=== PATIENT | female | born 2000 | race Caucasian/White ===

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

== ENCOUNTER 2018-05-19 00:59 | Outpatient (CLI) | payer MEDICAID ==
[2018-05-19 01:25] LABS: APPEARANCE,URINE CLOUDY; BILIRUBIN,URINE NEGATIVE (NEGATIVE); COLOR,URINE YELLOW; GLUCOSE, URINE NEGATIVE (NEGATIVE); KETONES,URINE NEGATIVE (NEGATIVE); LEUKOCYTE ESTERASE,URINE NEGATIVE (NEGATIVE); NITRITE,URINE NEGATIVE (NEGATIVE); PROTEIN,URINE NEGATIVE (NEGATIVE); URINE SPECIFIC GRAVITY 1.016; UROBILINOGEN,URINE NEGATIVE mg/dL (<2.0)
[2018-05-19 01:48] LABS: URINE AMPHETAMINES SCREEN NEGATIVE; URINE BARBITURATES SCREEN NEGATIVE; URINE BENZODIAZEPINES SCREEN NEGATIVE; URINE COCAINE SCREEN NEGATIVE; URINE MARIJUANA (THC) SCREEN NEGATIVE; URINE METHADONE SCREEN NEGATIVE; URINE PHENCYCLIDINE SCREEN NEGATIVE
--- NOTE | 2018-05-19 03:28 | Non Stress Test Report ---
Non Stress Test Datetime Report Generated by CPN: 05/19/2018 03:28 DEMOGRAPHIC EGA NST: 39.2 INDICATION Indication for Study: Ordered by Provider MONITORING Monitor Explained: Monitor Explained; Test Explained; Patient Verbalized Understanding Time on Monitor: 05/19/2018 01:13 Time off Monitor: 05/19/2018 02:09 NST Duration: 56 NST INTERVENTIONS NST Interventions: PO Hydration Physician Notified NST: Dr. Younger BABY A: [id number] BABY A Movement : Present Contraction Frequency : irregular FHR Baseline : 130 Accelerations : 15X15 Decelerations : None Variability : Moderate 6-25bpm NST Review: Meets Criteria for Reactive NST NST Review and Verified By : Lara Parra RN NST REPORT Report Trigger: Send Report
== END 2018-05-19 02:10 | disposition home or self-care (01) ==
LOC: LC 00:59
PROVIDERS: ATTEND Obstetrics & Gynecology
PROC: 4A1HXCZ Monitoring of Products of Conception, Cardiac Rate, External Approach (ICD-10-PCS; principal; 2018-05-19)
DX: O47.1 False labor at or after 37 completed weeks of gestation (principal); Z3A.39 39 weeks gestation of pregnancy
CPT/HCPCS: 59025; 80307; 81005

== ENCOUNTER 2018-05-24 14:39 | Outpatient (CLI) | payer MEDICAID ==
[2018-05-24 15:07] LABS: APPEARANCE,URINE CLOUDY; BILIRUBIN,URINE NEGATIVE (NEGATIVE); COLOR,URINE YELLOW; GLUCOSE, URINE NEGATIVE (NEGATIVE); KETONES,URINE NEGATIVE (NEGATIVE); LEUKOCYTE ESTERASE,URINE LARGE (NEGATIVE); NITRITE,URINE NEGATIVE (NEGATIVE); PROTEIN,URINE NEGATIVE (NEGATIVE); URINE SPECIFIC GRAVITY 1.015; UROBILINOGEN,URINE NEGATIVE mg/dL (<2.0)
[2018-05-24 15:35] LABS: URINE AMPHETAMINES SCREEN NEGATIVE; URINE BARBITURATES SCREEN NEGATIVE; URINE BENZODIAZEPINES SCREEN NEGATIVE; URINE COCAINE SCREEN NEGATIVE; URINE MARIJUANA (THC) SCREEN NEGATIVE; URINE METHADONE SCREEN NEGATIVE; URINE PHENCYCLIDINE SCREEN NEGATIVE
--- NOTE | 2018-05-24 15:38 | Non Stress Test Report ---
Non Stress Test Datetime Report Generated by CPN: 05/24/2018 15:38 DEMOGRAPHIC EGA NST: 40.0 INDICATION Indication for Study: Ordered by Provider MONITORING Monitor Explained: Monitor Explained; Test Explained; Patient Verbalized Understanding Time on Monitor: 05/24/2018 14:52 Time off Monitor: 05/24/2018 15:29 NST Duration: 37 NST INTERVENTIONS NST Interventions: PO Hydration; Reposition Patient Physician Notified NST: Neftaly Mina, CNM BABY A: [id number] BABY A Movement : Present Contraction Frequency : NONE FHR Baseline : 125 Accelerations : 15X15 Decelerations : None Variability : Moderate 6-25bpm NST Review: Meets Criteria for Reactive NST NST Review and Verified By : Karen Rufino RNC NST Results: Reactive NST REPORT Report Trigger: Send Report
[2018-05-24 18:05] LABS: FETAL RBC COUNT 0
[2018-05-24 18:07] LABS: KB INTERPRETATION NEGATIVE (NEGATIVE)
== END 2018-05-24 15:43 | disposition home or self-care (01) ==
LOC: LC 14:39
PROVIDERS: ATTEND Obstetrics & Gynecology
PROC: 4A1HXCZ Monitoring of Products of Conception, Cardiac Rate, External Approach (ICD-10-PCS; principal; 2018-05-24)
DX: O47.1 False labor at or after 37 completed weeks of gestation (principal); O48.0 Post-term pregnancy; Z3A.40 40 weeks gestation of pregnancy
CPT/HCPCS: 36415; 59025; 80307; 81005; 84112; 85460

== ENCOUNTER 2018-05-26 02:50 | Inpatient (IN) | payer MEDICAID ==
[2018-05-26 03:22] LABS: APPEARANCE,URINE SLIGHTLY-CLOUDY; BILIRUBIN,URINE NEGATIVE (NEGATIVE); COLOR,URINE YELLOW; GLUCOSE, URINE NEGATIVE (NEGATIVE); KETONES,URINE NEGATIVE (NEGATIVE); LEUKOCYTE ESTERASE,URINE MODERATE (NEGATIVE); NITRITE,URINE NEGATIVE (NEGATIVE); PROTEIN,URINE NEGATIVE (NEGATIVE); URINE SPECIFIC GRAVITY 1.019; UROBILINOGEN,URINE NEGATIVE mg/dL (<2.0)
[2018-05-26 03:37] LABS: URINE AMPHETAMINES SCREEN NEGATIVE; URINE BARBITURATES SCREEN NEGATIVE; URINE BENZODIAZEPINES SCREEN NEGATIVE; URINE COCAINE SCREEN NEGATIVE; URINE MARIJUANA (THC) SCREEN NEGATIVE; URINE METHADONE SCREEN NEGATIVE; URINE PHENCYCLIDINE SCREEN NEGATIVE
[2018-05-26] MEDS ORDERED: RINGERS SOLUTION,LACTATED 1,000 ML IV ONE (04:20)
[2018-05-26] MEDS ORDERED: RINGERS SOLUTION,LACTATED 1,000 ML IV PRN (04:20)
[2018-05-26] MEDS ORDERED: CITRIC ACID/SODIUM CITRATE ORAL SOLN 15 ML UDCUP ONE (04:24)
[2018-05-26] MEDS ORDERED: CEFAZOLIN 2 GM/D5W RTU 2 GM/50 ML RTUPB IV ONE (04:24)
[2018-05-26 04:41] LABS: HEMATOCRIT 36.4 % (36.0-47.0); HEMOGLOBIN 12.4 g/dL (12.0-15.5); MEAN CORPUSCULAR HEMOGLOBIN 29.6 pg (27.0-33.4); MEAN CORPUSCULAR VOLUME 87 fl (80-97); PLATELET COUNT 265 10^3/uL (150-450); RED BLOOD COUNT 4.18 10^6/uL (3.72-5.28); RED CELL DISTRIBUTION WIDTH 13.7 % (11.5-14.0); WHITE BLOOD COUNT 20.4 10^3/uL (4.0-10.5)
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
[2018-05-26] MEDS ORDERED: EPHEDRINE SULFATE INJ 50 MG/1 ML AMPULE ONE (04:43)
[2018-05-26] MEDS ORDERED: ONDANSETRON HCL INJ/PF 4 MG/2 ML SDV ONE (04:43)
[2018-05-26] MEDS ORDERED: KETOROLAC TROMETHAMINE INJ/PF 30 MG/1 ML SDV ONE ×2 (04:43→06:35)
[2018-05-26] MEDS ORDERED: MIDAZOLAM 2 MG/2 ML INJ ONE (04:43)
[2018-05-26] MEDS ORDERED: ACETAMINOPHEN 1,000 MG/100 ML RTUPB IV ONE (04:43)
[2018-05-26] MEDS ORDERED: FENTANYL CITRATE INJ/PF 100 MCG/2 ML AMPUL ONE (04:43)
[2018-05-26] MEDS ORDERED: OXYTOCIN/NORMAL SALINE 0 UNIT/0 ML RTUINJ ONE (04:44)
[2018-05-26] MEDS ORDERED: METHYLERGONOVINE MALEATE INJ/PF 0.2 MG/1 ML AMPULE ONE (04:44)
[2018-05-26] MEDS ORDERED: BUPIVACAINE HCL/DEX-WATER/PF 15 MG/2 ML AMPULE ONE (04:44)
[2018-05-26] MEDS ORDERED: OXYTOCIN 10 UNIT/ML VIAL ONE (04:44)
[2018-05-26 04:55] LABS: ABSOLUTE NEUTROPHILS# (MANUAL) 19.4 10^3/uL (1.7-8.2); BASOPHILS % (MANUAL) 0 % (0-2); EOSINOPHILS % (MANUAL) 0 % (0-6); LYMPHOCYTES % (MANUAL) 5 % (13-45); MONOCYTES % (MANUAL) 0 % (3-13); PLATELET COMMENT ADEQUATE; RBC MORPHOLOGY COMMENT NORMO-CYTIC/CHROMIC; SEGMENTED NEUTROPHILS % (MAN) 95 % (42-78); TOTAL CELLS COUNTED 100
[2018-05-26] MEDS ORDERED: FENTANYL CITRATE INJ/PF 100 MCG/2 ML AMPUL IV PRN ×3 (05:23)
[2018-05-26] MEDS ORDERED: OXYCODONE-ACETAMINOPHEN 5-325 MG TABLET PO PRN ×3 (05:23→05:38)
[2018-05-26] MEDS ORDERED: MORPHINE SULFATE 10 MG/ML INJ IV PRN (05:23)
[2018-05-26] MEDS ORDERED: PROMETHAZINE HCL INJ 25 MG/1 ML VIAL IV PRN ×3 (05:23→05:38)
[2018-05-26] MEDS ORDERED: DIPHENHYDRAMINE HCL 50 MG/ML VIAL IV PRN (05:23)
[2018-05-26] MEDS ORDERED: ONDANSETRON HCL INJ/PF 4 MG/2 ML SDV IV PRN (05:23)
[2018-05-26] MEDS ORDERED: MEPERIDINE HCL/PF INJ 25 MG/1 ML DISP.SYRIN IV PRN (05:23)
[2018-05-26] MEDS ORDERED: ACETAMINOPHEN 1,000 MG/100 ML RTUPB IV PRN (05:38)
[2018-05-26] MEDS ORDERED: OXYTOCIN/NORMAL SALINE 20 UNIT/1,000 ML RTUINJ IV PRN (05:38)
[2018-05-26] MEDS ORDERED: ACETAMINOPHEN 325 MG TABLET PO PRN (05:38)
[2018-05-26] MEDS ORDERED: MORPHINE SULFATE 10 MG/ML INJ IM PRN (05:38)
[2018-05-26] MEDS ORDERED: MEASLES,MUMPS&RUBELLA VACC/PF 0.5 ML VIAL SUBCUT PRN (05:38)
[2018-05-26] MEDS ORDERED: DIPH/PERTUSS(ACELL)/TETANUS VAC/PF 0.5 ML SYR (>=10YO) IM PRN (05:38)
[2018-05-26] MEDS ORDERED: SIMETHICONE 80 MG TAB.CHEW PO PRN (05:38)
[2018-05-26] MEDS ORDERED: LEVETIRACETAM 1000 MG/NACL-ISO 1,000 MG/100 ML RTUPB IV ONE (06:00)
[2018-05-26] MEDS ORDERED: OXYTOCIN/NORMAL SALINE 20 UNIT/1,000 ML RTUINJ ONE (06:26)
[2018-05-26] MEDS ORDERED: LEVETIRACETAM INJ/PF 500 MG/5 ML SDV IV ONE (06:45)
[2018-05-26] MEDS ORDERED: LEVETIRACETAM 500 MG/NACL-ISO 1,000 MG/200 ML RTUPB IV ONE (06:46)
[2018-05-26] MEDS: KETOROLAC TROMETHAMINE INJ/PF 30 MG/1 ML SDV IV SCH ×3 (07:17→22:57)
--- NOTE | 2018-05-26 07:28 | Warning Signs in Babies ---
VOD Warning Signs Datetime Report Generated by [facility]: 05/26/2018 07:27 VOD#608 -Warning Signs in Babies: Needs to be viewed. (05/19/2018 01:03:Tammi Hurst RN)
[2018-05-26 09:02] LABS: ALANINE AMINOTRANSFERASE 21 U/L (5-35); ALKALINE PHOSPHATASE 116 U/L (50-135); ANION GAP 7 (5-19); ASPARTATE AMINO TRANSFERASE 17 U/L (5-30); BILIRUBIN,DIRECT 0.1 mg/dL (0.0-0.4); BILIRUBIN,TOTAL 0.2 mg/dL (0.2-1.3); BLOOD UREA NITROGEN 12 mg/dL (7-20); CALCIUM 9.3 mg/dL (8.4-10.2); CARBON DIOXIDE 19 mmol/L (22-30); CHLORIDE 111 mmol/L (98-107); GLUCOSE 105 mg/dL (75-110); POTASSIUM 4.4 mmol/L (3.6-5.0); SODIUM 137.3 mmol/L (137-145); TOTAL PROTEIN 5.2 g/dL (6.3-8.2)
[2018-05-26] MEDS ORDERED: PHENYLEPHRINE HCL INJ/PF 10 MG/1 ML SDV ONE (09:50)
[2018-05-26] MEDS ORDERED: LEVETIRACETAM 500 MG TABLET PO SCH (10:00)
[2018-05-26] MEDS: PRENATAL VITAMIN W DHA CAPSULE PO SCH (10:21)
[2018-05-26] MEDS: DOCUSATE SODIUM 100 MG CAPSULE PO SCH ×2 (10:21→18:30)
[2018-05-26] MEDS ORDERED: BRIVARACETAM PO SCH (11:15)
[2018-05-26] MEDS: OXYCODONE-ACETAMINOPHEN 5-325 MG TABLET PO PRN ×2 (11:42→18:38)
--- NOTE | 2018-05-26 13:20 | PDOC CONSULTATION ---
Consultation Consult Date: 05/26/18 Consult reason:: history of seziure disorder History of Present Illness Admission Date/PCP: 05/26/18 04:20 SUSAN MERRILL MD History of Present Illness: MARIA G CROUCH is a 17 year old female with a PMH of syphilis (treated), depression, bipolar disorder currently non medications and seizure disorder who was admitted under [facility] service for emergency due to distress. Hospitalist service was consulted due to patient's history of seizure disorder. Patient has no recent seizure episode. Family is on bedside. They say her last seizure was in early March which they describe as patient losing consciousness and having jerking movements of both extremities for a few rocco ted. Patient says she was started on Brivaracetam [place] [address] Valdes but that she stopped taking this medication as she is worried about its side effects on the fetus. She was started on IV Keppra by the granite worker upon admission. She denies any other acute complaints. Past Medical History Pulmonary Medical History: Reports: Asthma Neurological Medical History: Reports: Seizures Psychiatric Medical History: Reports: Attention Deficit Hyperactivity Disorder, Bipolar Disorder Past Surgical History Past Surgical History: Reports: Tonsillectomy Social History Smoking Status: Never Smoker Family History Family History: Reviewed & Not Pertinent Parental Family History Reviewed: Yes - no premature CAD Children Family History Reviewed: No Sibling(s) Family History Reviewed.: No Medication/Allergy Home Medications: Brivaracetam [Briviact] 1 tab PO DAILY 05/24/18 2/Iron/Folic Acid/Om3 [Complete Dha] 1 each PO DAILY 05/24/18 Allergies/Adverse Reactions: No Known Allergies Allergy (Verified 05/26/18 04:19) Review of Systems All systems: reviewed and no additional remarkable complaints except as stated - as mentioned in HPI Physical Exam Vital Signs: Temp Pulse Resp BP Pulse Ox 98.3 F 110 H 22 111/53 L 100 05/26/18 12:36 05/26/18 12:36 05/26/18 12:36 05/26/18 12:36 05/26/18 12:36 Intake & Output 05/25/18 05/26/18 05/27/18 06:59 06:59 06:59 Intake Total 890 Output Total 600 Balance 290 Weight 217 lb 6.012 oz General appearance: PRESENT: no acute distress, well-developed, well-nourished Head exam: PRESENT: atraumatic, normocephalic Eye exam: PRESENT: conjunctiva pink, EOMI, PERRLA. ABSENT: scleral icterus Ear exam: PRESENT: normal external ear exam Mouth exam: PRESENT: moist, tongue midline Neck exam: ABSENT: carotid bruit, JVD, lymphadenopathy, thyromegaly Respiratory exam: PRESENT: clear to auscultation la. ABSENT: rales, rhonchi, wheezes Cardiovascular exam: PRESENT: RRR. ABSENT: diastolic murmur, rubs, systolic murmur Pulses: PRESENT: normal dorsalis pedis pul GI/Abdominal exam: PRESENT: normal bowel sounds, soft. ABSENT: distended, guarding, mass, organolmegaly, rebound, tenderness Rectal exam: PRESENT: deferred Neurological exam: PRESENT: alert, awake, oriented to person, oriented to place, oriented to time, oriented to situation, CN II-XII grossly intact. ABSENT: motor sensory deficit Results Laboratory Results: 05/26/18 04:30 05/26/18 08:21 05/26/18 05/26/18 05/26/18 02:54 04:30 04:30 WBC 20.4 H RBC 4.18 Hgb 12.4 Hct 36.4 MCV 87 MCH 29.6 MCHC 34.0 RDW 13.7 Plt Count 265 Seg Neutrophils % Not Reportable Lymphocytes % Not Reportable Monocytes % Not Reportable Eosinophils % Not Reportable Basophils % Not Reportable Absolute Neutrophils Not Reportable Absolute Lymphocytes Not Reportable Absolute Monocytes Not Reportable Absolute Eosinophils Not Reportable Absolute Basophils Not Reportable Sodium Potassium Chloride Carbon Dioxide Anion Gap BUN Creatinine Est GFR ( Amer) Est GFR (Non-Af Amer) Glucose Calcium Total Bilirubin AST ALT Alkaline Phosphatase Total Protein Albumin Urine Color YELLOW Urine Appearance SLIGHTLY-CLOUDY Urine pH 7.0 Ur Specific [place] 1.019 Urine Protein NEGATIVE Urine Glucose (UA) NEGATIVE Urine Ketones NEGATIVE Urine Blood NEGATIVE Urine Nitrite NEGATIVE Ur Leukocyte Esterase MODERATE H Blood Type B POSITIVE Antibody Screen NEGATIVE 05/26/18 08:21 WBC RBC Hgb Hct MCV MCH MCHC RDW Plt Count Seg Neutrophils % Lymphocytes % Monocytes % Eosinophils % Basophils % Absolute Neutrophils Absolute Lymphocytes Absolute Monocytes Absolute Eosinophils Absolute Basophils Sodium 137.3 Potassium 4.4 Chloride 111 H Carbon Dioxide 19 L Anion Gap 7 BUN 12 Creatinine 0.61 Est GFR ( Amer) > 60 Est GFR (Non-Af Amer) > 60 Glucose 105 Calcium 9.3 Total Bilirubin 0.2 AST 17 ALT 21 Alkaline Phosphatase 116 Total Protein 5.2 L Albumin 3.0 L Urine Color Urine Appearance Urine pH Ur Specific [place] Urine Protein Urine Glucose (UA) Urine Ketones Urine Blood Urine Nitrite Ur Leukocyte Esterase Blood Type Antibody Screen Assessment & Plan - Diagnosis (1) Seizure disorder Is this a current diagnosis for this admission?: Yes Plan: Patient has not been complaint with her Brivaracetam at home. There is not enough data about the risk of using Brivaracetam while . Keppra is excreted in breastmilk like most other antiseziure medications. Given that she had a witnessed seizure in March due to noncompliance, I recommend she be resumed on antiseizure medication. Patient says she does not want to take antiseizure medication and is apprehensive about the risks to her baby. She is undecided at the moment. Family on bedside is trying to convince her she needs it. She will discuss this further with her family and partner. For the meantime, will switch IV Keppra to PO 500 mg bid. (2) Non-reassuring electronic monitoring tracing Is this a current diagnosis for this admission?: Yes Plan: S/P repeat emergent C section. Primary service ([facility]) following. - Time Time Spent: 30 to 50 Minutes
--- NOTE | 2018-05-26 14:55 | PDOC PROGRESS REPORT ---
Subjective Progress Note for:: 05/26/18 Subjective:: update due to RPR results and known results from . please see records in chart as well Reason For Visit: Physical Exam - Physical Exam Vital Signs: Temp Pulse Resp BP Pulse Ox 98.3 F 110 H 22 111/53 L 100 05/26/18 12:36 05/26/18 12:36 05/26/18 12:36 05/26/18 12:36 05/26/18 12:36 Intake & Output 05/25/18 05/26/18 05/27/18 06:59 06:59 06:59 Intake Total 890 Output Total 600 Balance 290 Weight 98.6 kg Result Laboratory Results: 05/26/18 04:30 05/26/18 08:21 05/26/18 05/26/18 05/26/18 02:54 04:30 04:30 WBC 20.4 H RBC 4.18 Hgb 12.4 Hct 36.4 MCV 87 MCH 29.6 MCHC 34.0 RDW 13.7 Plt Count 265 Seg Neutrophils % Not Reportable Lymphocytes % Not Reportable Monocytes % Not Reportable Eosinophils % Not Reportable Basophils % Not Reportable Absolute Neutrophils Not Reportable Absolute Lymphocytes Not Reportable Absolute Monocytes Not Reportable Absolute Eosinophils Not Reportable Absolute Basophils Not Reportable Sodium Potassium Chloride Carbon Dioxide Anion Gap BUN Creatinine Est GFR ( Amer) Est GFR (Non-Af Amer) Glucose Calcium Total Bilirubin AST ALT Alkaline Phosphatase Total Protein Albumin Urine Color YELLOW Urine Appearance SLIGHTLY-CLOUDY Urine pH 7.0 Ur Specific [place] 1.019 Urine Protein NEGATIVE Urine Glucose (UA) NEGATIVE Urine Ketones NEGATIVE Urine Blood NEGATIVE Urine Nitrite NEGATIVE Ur Leukocyte Esterase MODERATE H Blood Type B POSITIVE Antibody Screen NEGATIVE 05/26/18 08:21 WBC RBC Hgb Hct MCV MCH MCHC RDW Plt Count Seg Neutrophils % Lymphocytes % Monocytes % Eosinophils % Basophils % Absolute Neutrophils Absolute Lymphocytes Absolute Monocytes Absolute Eosinophils Absolute Basophils Sodium 137.3 Potassium 4.4 Chloride 111 H Carbon Dioxide 19 L Anion Gap 7 BUN 12 Creatinine 0.61 Est GFR ( Amer) > 60 Est GFR (Non-Af Amer) > 60 Glucose 105 Calcium 9.3 Total Bilirubin 0.2 AST 17 ALT 21 Alkaline Phosphatase 116 Total Protein 5.2 L Albumin 3.0 L Urine Color Urine Appearance Urine pH Ur Specific [place] Urine Protein Urine Glucose (UA) Urine Ketones Urine Blood Urine Nitrite Ur Leukocyte Esterase Blood Type Antibody Screen Status: Imported from PACS Assessment & Plan - Diagnosis (1) Positive 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 She was treated in [place], [place]. In October 2017 and 01/2018 she has a positive RPR titer although now down to 1:1 which is c/w successful treatment (greater than 4 fold decrease). FTA - ABS also positive but as this time an antibody this is expected to be positive. NICU provider requested FTA AbS so that was ordered but expect to be positive as this is antibody (see above). RPR titers down to 1:1 and c/w treatent success and no need for retreatment. Expect to have positive RPR titer (similar to mother) and this to decline by 2-3 months and should be negative by 6 months of age. Defer treatment to NICU provider but FTA-ABS ordered as per their request. Reviewed maternal history with NICU provider and with lab and patients RN and Internal medicine and then again with pathology. I cancelled the apparent protocol to repeat the RPR in the mother today after the lab received the positive results as her titer is unchanged (october and Jan 2018 and no further information would be obtained by putting the mother through another blood draw. The admitting provider was and is aware of patients RPR status and treatment status and agrees with above. - Time Time Spent with patient: 35 or more minutes Medications reviewed and adjusted accordingly: Yes Anticipated discharge: Home Within: within 48 hours - Inpatient Certification Based on my medical assessment, after consideration of the patient's comorbidities, presenting symptoms, or acuity I expect that the services needed warrant INPATIENT care.: Yes I certify that my determination is in accordance with my understanding of Medicare's requirements for reasonable and necessary INPATIENT services [42 CFR 412.3e].: Yes Medical Necessity: Need For IV Fluids, Need for Pain Control
[2018-05-26] MEDS ORDERED: LEVETIRACETAM 1000 MG/NACL-ISO 1,000 MG/100 ML RTUPB IV SCH (18:00)
[2018-05-26] MEDS: LEVETIRACETAM 500 MG TABLET PO SCH (22:55)
[2018-05-27] MEDS: OXYCODONE-ACETAMINOPHEN 5-325 MG TABLET PO PRN ×4 (00:21→23:49)
--- NOTE | 2018-05-27 03:52 | OPERATIVE REPORT E ---
Operative Report NAME: MARIA G CROUCH : 2000 AGE: 17Y DATE OF SURGERY: 05/26/2018 ROOM: 222 PREOPERATIVE DIAGNOSIS: 1. IUP AT TERM. 2. NONREASSURING STRIP. POSTOPERATIVE DIAGNOSIS: 1. UP AT TERM. 2. NONREASSURING STRIP. OPERATION: Primary low transverse with delivery of a viable female, Apgars of 1 and 9. Weight is pending. SURGEON: Ladarius WADE M.D. ESTIMATED BLOOD LOSS: Less than 600 mL. TISSUE REMOVED OR ALTERED: Placenta. ANESTHESIA: Spinal. PROCEDURE: The patient was placed in a supine position and rolled on her right side, prepped and draped in sterile fashion. A Pfannenstiel incision was made. The incision extended through the subcutaneous tissue with sharp dissection. Fascia sharply divided. The rectus muscle bluntly and sharply divided. Parietal peritoneum was entered with sharp dissection. The uterus was nicked in the midline and extended bilaterally. The was then delivered through the uterine dome incision. The nose and mouth suctioned with bulb syringe. The cord was clamped. The infant was passed from the table. The placenta was manually extracted. The uterus was closed in 2 layers using 0 Vicryl for a running stitch, and the second a Lembert stitch imbricating the first layer. Hemostasis was noted. The fascia was closed with 0 Vicryl. The skin was closed with subcutaneous absorbable gabriela. Her urine remained clear throughout the procedure. She was taken to recovery in good condition and the infant went to nursery in good condition. DICTATING PHYSICIAN: Ladarius WADE M.D. [id number] [facility]#: [id number] ID: [id number] JOB#: [id number] ACCT: [id number] cc:Ladarius WADE M.D. >
[2018-05-27] MEDS: IBUPROFEN 800 MG TABLET PO SCH ×4 (06:00→23:49)
[2018-05-27 07:47] LABS: HEMATOCRIT 32.2 % (36.0-47.0); HEMOGLOBIN 10.8 g/dL (12.0-15.5); MEAN CORPUSCULAR HEMOGLOBIN 29.4 pg (27.0-33.4); MEAN CORPUSCULAR HGB CONC 33.5 g/dL (32.0-36.0); MEAN CORPUSCULAR VOLUME 88 fl (80-97); PLATELET COUNT 223 10^3/uL (150-450); RED BLOOD COUNT 3.67 10^6/uL (3.72-5.28); WHITE BLOOD COUNT 12.5 10^3/uL (4.0-10.5)
--- NOTE | 2018-05-27 09:47 | PDOC PROGRESS REPORT ---
Subjective-OB Progress Note for:: 05/27/18 Subjective: reports bleeding slowing, pain controlled with current meds, denies needs Physical Exam (OB) Vital Signs: Temp Pulse Resp BP Pulse Ox 98.1 F 104 H 18 135/68 H 99 05/27/18 03:37 05/27/18 03:37 05/27/18 03:37 05/27/18 03:37 05/27/18 03:37 Intake & Output 05/26/18 05/27/18 05/28/18 06:59 06:59 06:59 Intake Total 3330 Output Total 2700 Balance 630 Weight 98.6 kg - Dressing Removed: - silk tape Incision: Open, Draining - very scant Closure Type: Surgical Glue - well approximated - Abdomen Description: Soft, Round Hernia Present: No Fundal Description: Firm, Midline Fundal Height: u/u - u/2 - Extremities Lower extremities: Chelle's sign - neg Calf: Normal, Nontender Objective-Diagnostic Laboratory: 05/27/18 07:06 05/26/18 08:21 05/27/18 07:06 WBC 12.5 H RBC 3.67 L Hgb 10.8 L Hct 32.2 L MCV 88 MCH 29.4 MCHC 33.5 RDW 14.0 Plt Count 223 Assessment and Plan(PN) - Assessment and Plan (1) delivery delivered Is this a current diagnosis for this admission?: Yes (2) Positive RPR test Is this a current diagnosis for this admission?: Yes (3) Seizure disorder Is this a current diagnosis for this admission?: Yes - Time Spent with Patient Time with patient: Less than 15 minutes Medications reviewed and adjusted accordingly: Yes - Disposition Anticipated Discharge: Home Within: within 48 hours
[2018-05-27] MEDS: PRENATAL VITAMIN W DHA CAPSULE PO SCH (10:04)
[2018-05-27] MEDS: DOCUSATE SODIUM 100 MG CAPSULE PO SCH ×2 (10:04→17:34)
[2018-05-27] MEDS: LEVETIRACETAM 500 MG TABLET PO SCH ×2 (10:04→22:00)
--- NOTE | 2018-05-27 13:19 | PDOC PROGRESS REPORT ---
Subjective Progress Note for:: 05/27/18 Subjective:: MARIA G CROUCH is a 17 year old female with a PMH of syphilis (treated), depression, bipolar disorder currently non medications and seizure disorder who was admitted under Ob-Prop Worker service for emergency due to distress on 05/26. Hospitalist service was consulted due to patient's history of seizure disorder. Patient has no recent seizure episode. Family is on bedside. They say her last seizure was in early March which they describe as patient losing consciousness and having jerking movements of both extremities for a few minutes. Patient says she was started on Brivaracetam [place] [address] Valdes but that she stopped taking this medication as she is worried about its side effects on the fetus. She was started on IV Keppra by the vertical lathe operator upon admission. No acute issues overnight. She denies any other acute complaints. She is doing well. Discussed in length with patient about recommendation to be restarted on Keppra instead of Brivacetam as there is not enough literature about the latter during . Discussed she could still breastfeed while on Keppra but that the baby will have to be monitored for lethargy. Discussed with patient baby's forestry biology specialist as well, Keppra at <3.5 g/daily is not a contraindication for . Reason For Visit: Physical Exam Vital Signs: Temp Pulse Resp BP Pulse Ox 98.2 F 106 H 20 123/71 99 05/27/18 09:00 05/27/18 09:00 05/27/18 09:00 05/27/18 09:00 05/27/18 03:37 Intake & Output 05/26/18 05/27/18 05/28/18 06:59 06:59 06:59 Intake Total 3330 240 Output Total 2700 Balance 630 240 Weight 217 lb 6.012 oz General appearance: PRESENT: no acute distress, well-developed, well-nourished Head exam: PRESENT: atraumatic, normocephalic Eye exam: PRESENT: conjunctiva pink, EOMI, PERRLA. ABSENT: scleral icterus Ear exam: PRESENT: normal external ear exam Mouth exam: PRESENT: moist, tongue midline Neck exam: ABSENT: carotid bruit, JVD, lymphadenopathy, thyromegaly Respiratory exam: PRESENT: clear to auscultation la. ABSENT: rales, rhonchi, wheezes Cardiovascular exam: PRESENT: RRR. ABSENT: diastolic murmur, rubs, systolic murmur Pulses: PRESENT: normal dorsalis pedis pul GI/Abdominal exam: PRESENT: normal bowel sounds, soft. ABSENT: distended, guarding, mass, organolmegaly, rebound, tenderness Rectal exam: PRESENT: deferred Neurological exam: PRESENT: alert, awake, oriented to person, oriented to place, oriented to time, oriented to situation, CN II-XII grossly intact. ABSENT: motor sensory deficit Results Laboratory Results: 05/27/18 07:06 05/26/18 08:21 05/27/18 07:06 WBC 12.5 H RBC 3.67 L Hgb 10.8 L Hct 32.2 L MCV 88 MCH 29.4 MCHC 33.5 RDW 14.0 Plt Count 223 Assessment & Plan - Diagnosis (1) Seizure disorder Is this a current diagnosis for this admission?: Yes Plan: Patient has not been complaint with her Brivaracetam at home. There is not enough data about the risk of using Brivaracetam while . Keppra is excreted in breastmilk like most other antiseziure medications. Given that she had a witnessed seizure in March due to noncompliance, I recommend she be resumed on antiseizure medication. Patient says she does not want to take antiseizure medication and is apprehensive about the risks to her baby. She is undecided at the moment. Family on bedside is trying to convince her she needs it. She will discuss this further with her family and partner. For the meantime, will switch IV Keppra to PO 500 mg bid. 05/27: Discussed in length with patient about recommendation to be restarted on Keppra instead of Brivacetam as there is not enough literature about the latter during . Discussed she could still breastfeed while on Keppra but that the baby will have to be monitored for lethargy. Discussed with patient baby's forestry biology specialist as well, Keppra at <3.5 g/daily is not a contraindication for liz astfeeding. Recommend Keppra 500 mg bid upon discharge and follow-up with patient's neurologist. Thank you for this consult. (2) Non-reassuring electronic monitoring tracing Is this a current diagnosis for this admission?: Yes Plan: S/P repeat emergent C section on 05/26. Primary service (Ob-Prop Worker) following. - Time Time Spent with patient: 25-34 minutes
[2018-05-28] MEDS: IBUPROFEN 800 MG TABLET PO SCH ×4 (05:32→23:57)
[2018-05-28] MEDS: DOCUSATE SODIUM 100 MG CAPSULE PO SCH ×2 (09:37→18:25)
[2018-05-28] MEDS: PRENATAL VITAMIN W DHA CAPSULE PO SCH (09:37)
[2018-05-28] MEDS: OXYCODONE-ACETAMINOPHEN 5-325 MG TABLET PO PRN ×3 (09:38→21:16)
[2018-05-28] MEDS: LEVETIRACETAM 500 MG TABLET PO SCH ×2 (09:43→21:16)
--- NOTE | 2018-05-28 10:37 | PDOC PROGRESS REPORT ---
Subjective Progress Note for:: 05/28/18 Reason For Visit: , c/section Physical Exam - Physical Exam Vital Signs: Temp Pulse Resp BP Pulse Ox 98.7 F 107 H 18 125/69 99 05/28/18 08:41 05/28/18 08:41 05/28/18 08:41 05/28/18 08:41 05/28/18 08:41 Intake & Output 05/27/18 05/28/18 05/29/18 06:59 06:59 06:59 Intake Total 3330 540 Output Total 2700 Balance 630 540 General appearance: PRESENT: no acute distress, cooperative - incision healing well. no evidence of breakdown - Obstetrical Exam Fundal Height: u/u - u/2 Tender: Yes - appropriate for post op Adhexa: normal Result Laboratory Results: 05/27/18 07:06 05/26/18 08:21 Assessment & Plan - Diagnosis (1) delivery delivered Is this a current diagnosis for this admission?: Yes (2) Non-reassuring electronic monitoring tracing Is this a current diagnosis for this admission?: Yes (3) Positive RPR test Is this a current diagnosis for this admission?: Yes (4) Seizure disorder Is this a current diagnosis for this admission?: Yes - Time Time Spent with patient: Less than 15 minutes Medications reviewed and adjusted accordingly: Yes Anticipated discharge: Home Within: within 24 hours - Plan Summary Plan Summary: pt's is in the NICU. Pt requesting a nesting room. Will discharge in the AM at appropriate course and try to facilitate a nesting room if available.
--- NOTE | 2018-05-28 12:15 | Progress Note ---
Provider Note Provider Note: No acute issues. Ob-Soft Hat Binder anticipating discharge tomorrow. Recommendation about continuing Keppra PO 500 mg bid upon discharge. Will signout. Please call us for any other questions or concerns.
[2018-05-29] MEDS: OXYCODONE-ACETAMINOPHEN 5-325 MG TABLET PO PRN ×2 (02:15→08:13)
[2018-05-29] MEDS: IBUPROFEN 800 MG TABLET PO SCH (06:45)
[2018-05-29] MEDS ORDERED: IBUPROFEN 800 MG TABLET ONE (08:16)
[2018-05-29] MEDS: DOCUSATE SODIUM 100 MG CAPSULE PO SCH (09:18)
[2018-05-29] MEDS: LEVETIRACETAM 500 MG TABLET PO SCH (09:18)
[2018-05-29] MEDS: PRENATAL VITAMIN W DHA CAPSULE PO SCH (09:18)
--- NOTE | 2018-05-29 11:53 | PDOC DISCHARGE SUMMARY ---
Final Diagnosis Discharge Date: 05/29/18 - Final Diagnosis (1) delivery delivered Is this a current diagnosis for this admission?: Yes (2) Positive RPR test Is this a current diagnosis for this admission?: Yes (3) Seizure disorder Is this a current diagnosis for this admission?: Yes Discharge Data - Discharge Medication Prescriptions: Ibuprofen [Motrin 800 mg Tablet] 800 mg PO Q8HP PRN #60 tablet PRN Reason: Oxycodone HCl/Acetaminophen [Percocet 5-325 mg Tablet] 1 tab PO Q4HP PRN #30 tablet PRN Reason: 2/Iron/Folic Acid/Om3 [Complete Kana Dha] 1 each PO DAILY #90 combo..pkg Home Medications: Brivaracetam [Briviact] 1 tab PO DAILY 05/24/18 Ibuprofen [Motrin 800 mg Tablet] 800 mg PO Q8HP PRN #60 tablet 05/29/18 Levetiracetam [Keppra 500 mg Tablet] 500 mg PO Q12 tablet 05/29/18 Oxycodone HCl/Acetaminophen [Percocet 5-325 mg Tablet] 1 tab PO Q4HP PRN #30 tablet 05/29/18 2/Iron/Folic Acid/Om3 [Complete Dha] 1 each PO DAILY #90 combo..pkg 05/29/18 Procedures: NST Intrapartum Procedure(s): : Low Cervical, Transverse - Diagnosis Test Laboratory: Temp Pulse Resp BP Pulse Ox 98.3 F 88 20 132/88 H 100 05/29/18 07:47 05/29/18 07:47 05/29/18 07:47 05/29/18 07:47 05/29/18 07:47 05/26/18 05/26/18 05/27/18 02:54 04:30 07:06 RBC 4.18 3.67 L Hgb 12.4 10.8 L Hct 36.4 32.2 L Urine Opiates Screen NEGATIVE - Discharge information/Instructions Discharge Activity: Balance Activity w/Rest, Pelvic Rest, No tub bath Discharge Diet: Regular Disposition: HOME, SELF-CARE Follow up with: [facility] in: 1, Weeks
[2018-05-29 14:49] VITALS: BP 120/66
== END 2018-05-29 15:15 | disposition home or self-care (01) | DRG 787 ==
LOC: LC 02:50 → LR 04:20 → 2S 08:15
PROVIDERS: ADMIT Obstetrics & Gynecology Gynecology; ATTEND Obstetrics & Gynecology Gynecology
PROC: 10D00Z1 Extraction of Products of Conception, Low, Open Approach (ICD-10-PCS; principal; 2018-05-26)
PROC: 4A1HXCZ Monitoring of Products of Conception, Cardiac Rate, External Approach (ICD-10-PCS; 2018-05-26)
DX: O77.9 Labor and delivery complicated by fetal stress, unspecified (principal); O99.354 Diseases of the nervous system complicating childbirth; G40.909 Epilepsy, unspecified, not intractable, without status epilepticus; Z79.899 Other long term (current) drug therapy; Z91.14 Patient's other noncompliance with medication regimen; Z3A.40 40 weeks gestation of pregnancy; Z37.0 Single live birth
CPT/HCPCS: 1961; 36415; 80053; 80307; 81005; 85025; 85027; 86592; 86780; 86850; 86900; 86901; 88307; 94799; J0131; J0690; J1885; J1953; J2210; J2250; J2270; J2370; J2405; J2590; J3010; J3490

== ENCOUNTER 2019-05-27 07:39 | Emergency (ER) | payer MEDICAID ==
[2019-05-27 08:09] LABS: ABSOLUTE LYMPHOCYTES (AUTO) 0.8 10^3/uL (0.5-4.7); ABSOLUTE MONOCYTES (AUTO) 0.4 10^3/uL (0.1-1.4); ABSOLUTE NEUT (AUTO) 15.1 10^3/uL (1.7-8.2); BASOPHILS % (AUTO) 0.2 % (0-2); EOSINOPHILS % (AUTO) 0.1 % (0-6); HEMATOCRIT 42.5 % (36.0-47.0); HEMOGLOBIN 14.9 g/dL (12.0-15.5); LYMPHOCYTES % (AUTO) 5.2 % (13-45); MEAN CORPUSCULAR VOLUME 88 fl (80-97); MONOCYTES % (AUTO) 2.6 % (3-13); PLATELET COUNT 345 10^3/uL (150-450); RED BLOOD COUNT 4.81 10^6/uL (3.72-5.28); RED CELL DISTRIBUTION WIDTH 13.9 % (11.5-14.0); SEGMENTED NEUTROPHILS % (AUTO) 91.9 % (42-78); TOTAL CELLS COUNTED % (AUTO) 100 %; WHITE BLOOD COUNT 16.4 10^3/uL (4.0-10.5)
[2019-05-27 08:24] LABS: ALBUMIN 4.7 g/dL (3.5-5.0); ALKALINE PHOSPHATASE 94 U/L (38-126); ANION GAP 11 (5-19); ASPARTATE AMINO TRANSFERASE 18 U/L (14-36); BILIRUBIN,TOTAL 0.8 mg/dL (0.2-1.3); BLOOD UREA NITROGEN 14 mg/dL (7-20); CALCIUM 9.9 mg/dL (8.4-10.2); CARBON DIOXIDE 21 mmol/L (22-30); CHLORIDE 106 mmol/L (98-107); GLUCOSE 109 mg/dL (75-110); POTASSIUM 4.1 mmol/L (3.6-5.0); TOTAL PROTEIN 7.5 g/dL (6.3-8.2)
[2019-05-27] MEDS ORDERED: RINGERS SOLUTION,LACTATED 1,000 ML IV ONE ×2 (08:27→11:50)
[2019-05-27] MEDS ORDERED: METOCLOPRAMIDE HCL INJ/PF 10 MG/2 ML SDV IV ONE ×2 (08:27→11:49)
[2019-05-27 08:59] LABS: APPEARANCE,URINE CLOUDY; BILIRUBIN,URINE NEGATIVE (NEGATIVE); COLOR,URINE YELLOW; GLUCOSE, URINE NEGATIVE (NEGATIVE); KETONES,URINE 80 mg/dL (NEGATIVE); LEUKOCYTE ESTERASE,URINE MODERATE (NEGATIVE); NITRITE,URINE NEGATIVE (NEGATIVE); PROTEIN,URINE 30 mg/dL (NEGATIVE); URINE SPECIFIC GRAVITY 1.027; UROBILINOGEN,URINE NEGATIVE mg/dL (<2.0)
--- NOTE | 2019-05-27 09:48 | ER Document Report ---
ED General - General Chief Complaint: Nausea/Vomiting Stated Complaint: NAUSEA/VOMITING Time Seen by Provider: 05/27/19 07:49 Primary Care Provider: SUSAN MERRILL MD [Primary Care Provider] - Follow up as needed Mode of Arrival: Medic Information source: Patient Notes: Is a 18-year-old female with history of seizures approximately 8 weeks presents to the emergency department with complaints of vomiting every hour since approximately 1900 last night. She reports she also had diarrhea this morning. Denies fever. Reports some sharp epigastric abdominal pain. Denies vaginal bleeding. Denies vaginal pain with void or vaginal discharge. Denies trauma. Patient reports 1 of her children was sick couple weeks ago with same symptoms but he is better now. Did not receive flu vaccine. TRAVEL OUTSIDE OF THE [place] IN LAST 30 DAYS: No - Related Data Allergies/Adverse Reactions: No Known Allergies Allergy (Verified 05/26/18 04:19) Past Medical History - Social History Smoking Status: Never Smoker Chew tobacco use (# tins/day): No Drug Abuse: None Family History: Reviewed & Not Pertinent Patient has suicidal ideation: No Patient has homicidal ideation: No Pulmonary Medical History: Reports: Hx Asthma Neurological Medical History: Reports: Hx Seizures Renal/ Medical History: Denies: Hx Peritoneal Dialysis Psychiatric Medical History: Reports: Hx Anxiety, Hx Attention Deficit Hyp eractivity Disorder, Hx Bipolar Disorder Past Surgical History: Reports: Hx Tonsillectomy - Immunizations Immunizations up to date: Yes Hx Diphtheria, Pertussis, Tetanus Vaccination: Yes Physical Exam - Vital signs Vitals: Temp Pulse Resp BP Pulse Ox 97.2 F 58 L 16 111/55 L 99 05/27/19 07:58 05/27/19 07:58 05/27/19 07:58 05/27/19 07:58 05/27/19 07:58 - General General appearance: Appears well, Alert In distress: None - HEENT Head: Normocephalic, Atraumatic Eyes: Normal Conjunctiva: Normal Ears: Normal External canal: Normal Tympanic membrane: Normal Nasal: Normal Mucous membranes: Moist Pharynx: Normal Neck: Normal, Supple. No: Lymphadenopathy - Respiratory Respiratory status: No respiratory distress Chest status: Nontender Breath sounds: Normal Chest palpation: Normal - Cardiovascular Rhythm: Regular Heart sounds: Normal auscultation Murmur: No - Abdominal Inspection: Normal Distension: No distension Bowel sounds: Normal Tenderness: Tender - Complains of epigastric tenderness Organomegaly: No organomegaly - Back Back: Normal, Nontender - Extremities General upper extremity: Normal ROM General lower extremity: Normal ROM - Neurological Neuro grossly intact: Yes Cognition: Normal Orientation: AAOx4 [place] Coma Scale Eye Opening: Spontaneous [place] Coma Scale Verbal: Oriented [place] Coma Scale Motor: Obeys Commands Jodee Coma Scale Total: 15 Speech: Normal - Psychological Associated symptoms: Normal affect, Normal mood - Skin Skin Temperature: Warm Skin Moisture: Dry Skin Color: Normal Course - Re-evaluation Re-evalutation: 05/27/19 10:01 Patient resting quietly denies recent vomiting. 05/27/19 12:50 Patient reports she is feeling better. Influenza negative. No further vomiting. WBCs 16.4 no shift, urinalysis moderate leukocytes 21 WBCs and bacteria trace. Specific gravity was 1.027 with ketones. Patient has received 2 L of IV fluids. Vital signs stable no fever. P.o. fluids ordered Obstetrics Ultrasound 05/27/19 08:26 IMPRESSION: LIVING INTRAUTERINE . EGA 6 weeks 1 day. Trimester of : First trimester - 0 to 13 weeks. Laboratory 05/27/19 05/27/19 05/27/19 07:50 07:50 07:50 WBC 16.4 H RBC 4.81 Hgb 14.9 Hct 42.5 MCV 88 MCH 31.0 MCHC 35.0 RDW 13.9 Plt Count 345 Lymph % (Auto) 5.2 L [place] % (Auto) 2.6 L Eos % (Auto) 0.1 Baso % (Auto) 0.2 Absolute Neuts (auto) 15.1 H Absolute Lymphs (auto) 0.8 Absolute Monos (auto) 0.4 Absolute Eos (auto) 0.0 Absolute Basos (auto) 0.0 Seg Neutrophils % 91.9 H Sodium 138.0 Potassium 4.1 Chloride 106 Carbon Dioxide 21 L Anion Gap 11 BUN 14 Creatinine 0.73 Est GFR ( Amer) > 60 Est GFR (MDRD) Non-Af > 60 Glucose 109 Calcium 9.9 Total Bilirubin 0.8 Direct Bilirubin 0.0 Neonat Total Bilirubin Not Reportable Neonat Direct Bilirubin Not Reportable Neonat Indirect Bili Not Reportable AST 18 ALT 13 Alkaline Phosphatase 94 Total Protein 7.5 Albumin 4.7 Lipase Beta HCG, Quant 37347.00 H Total Beta HCG POSITIVE Urine Color Urine Appearance Urine pH Ur Specific [place] Urine Protein Urine Glucose (UA) Urine Ketones Urine Blood Urine Nitrite Urine Bilirubin Urine Urobilinogen Ur Leukocyte Esterase Urine WBC (Auto) Urine RBC (Auto) U Hyaline Cast (Auto) Urine Bacteria (Auto) Squamous Epi Cells Auto Urine Mucus (Auto) Urine Ascorbic Acid Influenza A (Rapid) Influenza B (Rapid) 05/27/19 05/27/19 05/27/19 07:50 08:30 09:40 WBC RBC Hgb Hct MCV MCH MCHC RDW Plt Count Lymph % (Auto) [place] % (Auto) Eos % (Auto) Baso % (Auto) Absolute Neuts (auto) Absolute Lymphs (auto) Absolute Monos (auto) Absolute Eos (auto) Absolute Basos (auto) Seg Neutrophils % Sodium Potassium Chloride Carbon Dioxide Anion Gap BUN Creatinine Est GFR ( Amer) Est GFR (MDRD) Non-Af Glucose Calcium Total Bilirubin Direct Bilirubin Neonat Total Bilirubin Neonat Direct Bilirubin Neonat Indirect Bili AST ALT Alkaline Phosphatase Total Protein Albumin Lipase 45.9 Beta HCG, Quant Total Beta HCG Urine Color YELLOW Urine Appearance CLOUDY Urine pH 6.0 Ur Specific [place] 1.027 Urine Protein 30 H Urine Glucose (UA) NEGATIVE Urine Ketones 80 H Urine Blood NEGATIVE Urine Nitrite NEGATIVE Urine Bilirubin NEGATIVE Urine Urobilinogen NEGATIVE Ur Leukocyte Esterase MODERATE H Urine WBC (Auto) 21 Urine RBC (Auto) 7 U Hyaline Cast (Auto) 1 Urine Bacteria (Auto) TRACE Squamous Epi Cells Auto 17 Urine Mucus (Auto) MOD Urine Ascorbic Acid 40 H Influenza A (Rapid) NEGATIVE Influenza B (Rapid) NEGATIVE 05/27/19 14:09 Patient drinking p.o. fluids eating crackers without further vomiting. She was instructed on Phenergan Keflex for UTI. She was instructed on the importance of follow-up with her POLL CLERK primary care provider or the health department within 1 week. She was instructed to return here for worsening symptoms. She verbalized understanding to all instructions. - Vital Signs Vital signs: Temp Pulse Resp BP Pulse Ox 98.1 F 67 16 108/60 99 05/27/19 13:59 05/27/19 13:59 05/27/19 13:59 05/27/19 13:59 05/27/19 13:59 - Laboratory Result Diagrams: 05/27/19 07:50 05/27/19 07:50 Laboratory results interpreted by me: 05/27/19 05/27/19 05/27/19 07:50 07:50 07:50 WBC 16.4 H Lymph % (Auto) 5.2 L [place] % (Auto) 2.6 L Absolute Neuts (auto) 15.1 H Seg Neutrophils % 91.9 H Carbon Dioxide 21 L Beta HCG, Quant 87531.00 H Urine Protein Urine Ketones Ur Leukocyte Esterase Urine Ascorbic Acid 05/27/19 08:30 WBC Lymph % (Auto) [place] % (Auto) Absolute Neuts (auto) Seg Neutrophils % Carbon Dioxide Beta HCG, Quant Urine Protein 30 H Urine Ketones 80 H Ur Leukocyte Esterase MODERATE H Urine Ascorbic Acid 40 H - Diagnostic Test Radiology reviewed: Image reviewed, Reports reviewed Discharge - Discharge Clinical Impression: Upper abdominal pain, , Vomiting, UTI (urinary tract infection) Condition: Stable Disposition: HOME, SELF-CARE Instructions: Antinausea Medication ([facility]), Cephalexin ([facility]), Intravenous (IV) Fluids ([facility]), Ob-Manager [employer], [facility], ([facility]), Urinary Tract Infection ([facility]), Vomiting ([facility]) Additional Instructions: *You have been evaluated for nausea/vomiting, UTI *Your ultrasound showed that you are 6 weeks 1 day with a single living intrauterine . *Take medication as prescribed for nausea and urinary tract infection *Ensure adequate fluid intake as discussed to prevent dehydration *Follow up with a primary care provider, [employer] or the health department within 1 week for recheck *Return to ED for worsening condition, changes, needs Prescriptions: Cephalexin Monohydrate [Keflex 250 Mg Capsule] 250 mg PO QID #20 capsule Promethazine HCl [Phenergan 25 mg Tablet] 25 mg PO ASDIR PRN #12 tablet PRN Reason: Forms: Return to Work Referrals: SUSAN MERRILL MD [Primary Care Provider] - Follow up as needed
[2019-05-27 10:18] LABS: A TYPE INFLUENZA AG NEGATIVE (NEGATIVE); B INFLUENZA AG NEGATIVE (NEGATIVE)
--- NOTE | 2019-05-27 12:36 | RADIOLOGY REPORT (SQ) ---
EXAM DESCRIPTION: U/S OB TRANSVAGINAL W/O DOP COMPLETED DATE/TIME: 05/27/2019 12:15 pm REASON FOR STUDY: preg abd pain COMPARISON: None. TECHNIQUE: Transvaginal static and realtime grayscale images acquired of the pelvis. Additional matthew cted spectral and color Doppler images recorded. All images stored on PACs. [id number] CLINICAL DATES: 7 weeks 5 days LIMITATIONS: None. FINDINGS: FETUS: Single Living intrauterine . ULTRASOUND EGA: 6 weeks 1 day ULTRASOUND YONNY: 01/19/2020 EFW: Not applicable less than 20 weeks. CRL: 4.5 mm. FHR: 116 beats per minute. SURVEY: Too early to assess. AMNIOTIC FLUID: Adequate amount. PLACENTA: Not yet developed due to early gestation. SUBCHORIONIC BLEED: No SIZE OF BLEED: Not applicable. UTERUS: No masses. No anomalies. CERVICAL LENGTH: 2.2 cm. Closed. RIGHT ADNEXA: Normal ovary with normal vascular flow. 3.3 x 3.2 x 2.2 cm. There is a cyst measuring 2.1 x 1.6 x 1.5 cm. No adnexal free fluid. No adnexal masses. LEFT ADNEXA: Normal ovary with normal vascular flow. 2.4 x 2 x 1.2 cm. No adnexal free fluid. No adnexal masses. FREE FLUID: None. OTHER: No other significant finding. IMPRESSION: LIVING INTRAUTERINE . EGA 6 weeks 1 day. Trimester of : First trimester - 0 to 13 weeks. TECHNICAL DOCUMENTATION: JOB ID: [id number] [employer]- All Rights Reserved Reading location - IP/workstation name: [email or web address]
[2019-05-27 14:01] VITALS: BP 108/60
== END 2019-05-27 13:59 | disposition home or self-care (01) ==
LOC: ER 07:39
DX: O23.41 Unspecified infection of urinary tract in pregnancy, first trimester (principal); O21.9 Vomiting of pregnancy, unspecified; O26.891 Other specified pregnancy related conditions, first trimester; R10.10 Upper abdominal pain, unspecified; R10.13 Epigastric pain; R19.7 Diarrhea, unspecified; Z3A.08 8 weeks gestation of pregnancy; O99.511 Diseases of the respiratory system complicating pregnancy, first trimester; J45.909 Unspecified asthma, uncomplicated
CPT/HCPCS: 96376; 99284; 96361; 96374; 36415; 84702; 83690; 85025; 80053; 81001; 87804; 76817; J2765; J7120

== ENCOUNTER 2019-09-19 20:51 | Outpatient (CLI) | payer MEDICAID ==
[2019-09-19 21:54] LABS: BACTERIA (WET MOUNT) 4+ BACTERIA SEEN; EPITHELIALS (WET MOUNT) 4+ EPITHELIALS SEEN; RBCS (WET MOUNT) 2+ RBCS SEEN; T.VAGINALIS (WET MOUNT) NO TRICHOMONAS SEEN; WBCS (WET MOUNT) 4+ WBCS SEEN; YEAST (WET MOUNT) BUDDING YEAST SEEN
[2019-09-19 21:56] LABS: APPEARANCE,URINE SLIGHTLY-CLOUDY; BILIRUBIN,URINE NEGATIVE (NEGATIVE); COLOR,URINE YELLOW; GLUCOSE, URINE NEGATIVE (NEGATIVE); KETONES,URINE NEGATIVE (NEGATIVE); LEUKOCYTE ESTERASE,URINE LARGE (NEGATIVE); NITRITE,URINE NEGATIVE (NEGATIVE); PROTEIN,URINE NEGATIVE (NEGATIVE); URINE SPECIFIC GRAVITY 1.029; UROBILINOGEN,URINE NEGATIVE mg/dL (<2.0)
[2019-09-19 22:11] LABS: URINE AMPHETAMINES SCREEN NEGATIVE; URINE BARBITURATES SCREEN NEGATIVE; URINE BENZODIAZEPINES SCREEN NEGATIVE; URINE COCAINE SCREEN NEGATIVE; URINE METHADONE SCREEN NEGATIVE; URINE PHENCYCLIDINE SCREEN NEGATIVE
[2019-09-19 22:15] LABS: URINE MARIJUANA (THC) SCREEN UNCONFIRMED POSITIVE
[2019-09-19] MEDS ORDERED: FLUCONAZOLE 100 MG TABLET ONE (23:15)
[2019-09-19 23:19] LABS: CHLAM PCR NOT DETECTED (NOT DETECT)
[2019-09-19] MEDS ORDERED: FLUCONAZOLE 100 MG TABLET PO ONE (23:59)
== END 2019-09-19 23:27 | disposition home or self-care (01) ==
LOC: LC 20:51
PROVIDERS: ATTEND Student in an Organized Health Care Education/Training Program
DX: O26.892 Other specified pregnancy related conditions, second trimester (principal); L29.2 Pruritus vulvae; Z3A.23 23 weeks gestation of pregnancy
CPT/HCPCS: 59899; 36415; 87210; 81001; 80307; 87491; 87591; G0480 ×2; J3490; 80349; 87086

== ENCOUNTER 2019-11-05 10:02 | Outpatient (CLI) | payer MEDICAID ==
[2019-11-05 11:24] LABS: APPEARANCE,URINE CLOUDY; BILIRUBIN,URINE NEGATIVE (NEGATIVE); COLOR,URINE YELLOW; GLUCOSE, URINE NEGATIVE (NEGATIVE); KETONES,URINE TRACE mg/dL (NEGATIVE); LEUKOCYTE ESTERASE,URINE LARGE (NEGATIVE); NITRITE,URINE NEGATIVE (NEGATIVE); PROTEIN,URINE 30 mg/dL (NEGATIVE); URINE SPECIFIC GRAVITY 1.028; UROBILINOGEN,URINE NEGATIVE mg/dL (<2.0)
[2019-11-05] MEDS ORDERED: PROMETHAZINE HCL INJ 25 MG/1 ML VIAL IV ONE (11:27)
[2019-11-05] MEDS ORDERED: FAMOTIDINE INJ/PF 20 MG/2 ML SDV IV ONE ×2 (11:27→12:17)
[2019-11-05] MEDS ORDERED: RINGERS SOLUTION,LACTATED 1,000 ML IV ONE (11:27)
[2019-11-05 11:50] LABS: URINE AMPHETAMINES SCREEN NEGATIVE; URINE BARBITURATES SCREEN NEGATIVE; URINE BENZODIAZEPINES SCREEN NEGATIVE; URINE COCAINE SCREEN NEGATIVE; URINE METHADONE SCREEN NEGATIVE; URINE PHENCYCLIDINE SCREEN NEGATIVE
[2019-11-05 11:56] LABS: URINE MARIJUANA (THC) SCREEN UNCONFIRMED POSITIVE
[2019-11-05] MEDS ORDERED: POLYETHYLENE GLYCOL 3350 POWDER 17 GM/1 PACKET PO ONE (12:30)
== END 2019-11-05 13:42 | disposition home or self-care (01) ==
LOC: LC 10:02
PROVIDERS: ATTEND Obstetrics & Gynecology Gynecology
DX: O26.893 Other specified pregnancy related conditions, third trimester (principal); E86.0 Dehydration; Z3A.29 29 weeks gestation of pregnancy
CPT/HCPCS: 81001; 80307; 59899; J3490; S0028

== ENCOUNTER 2020-01-06 08:19 | Outpatient (CLI) | payer MEDICAID ==
[2020-01-06] MEDS ORDERED: HYDROXYZINE PAMOATE 50 MG CAPSULE PO ONE (08:51)
[2020-01-06] MEDS ORDERED: HYDROXYZINE PAMOATE 50 MG CAPSULE ONE (08:54)
[2020-01-06 08:59] LABS: APPEARANCE,URINE CLOUDY; BILIRUBIN,URINE NEGATIVE (NEGATIVE); COLOR,URINE YELLOW; GLUCOSE, URINE NEGATIVE (NEGATIVE); KETONES,URINE NEGATIVE (NEGATIVE); LEUKOCYTE ESTERASE,URINE MODERATE (NEGATIVE); NITRITE,URINE NEGATIVE (NEGATIVE); PROTEIN,URINE NEGATIVE (NEGATIVE); URINE SPECIFIC GRAVITY 1.017; UROBILINOGEN,URINE NEGATIVE mg/dL (<2.0)
--- NOTE | 2020-01-06 09:17 | Non Stress Test Report ---
Non Stress Test Datetime Report Generated by CPN: 01/06/2020 09:17 DEMOGRAPHIC Test Number: 1 EGA NST: 38.4 INDICATION Indication for Study (NST) Other: LC VITAL SIGNS Temperature - NST: 97.9 Pulse - NST: 82 RESP - NST: 18 NBPSYS NST: 101 NBPDIA NST: 58 MONITORING Monitor Explained: Monitor Explained; Test Explained; Patient Verbalized Understanding Time on Monitor: 01/06/2020 08:29 Time off Monitor: 01/06/2020 09:03 NST Duration: 34 NST INTERVENTIONS NST Interventions: PO Hydration; Reposition Patient Physician Notified NST: N Mina BABY A: [id number] BABY A Movement : Present Contraction Frequency : occasional FHR Baseline : 130 Accelerations : 15X15 Decelerations : None Variability : Moderate 6-25bpm NST Review: Meets Criteria for Reactive NST NST Review and Verified By : Jessica Rothman RN NST Results: Reactive NST REPORT Report Trigger: Send Report
[2020-01-06 09:18] LABS: URINE AMPHETAMINES SCREEN NEGATIVE; URINE BARBITURATES SCREEN NEGATIVE; URINE COCAINE SCREEN NEGATIVE; URINE MARIJUANA (THC) SCREEN NEGATIVE; URINE METHADONE SCREEN NEGATIVE; URINE PHENCYCLIDINE SCREEN NEGATIVE
[2020-01-06 09:20] LABS: URINE BENZODIAZEPINES SCREEN UNCONFIRMED POSITIVE
== END 2020-01-06 09:11 | disposition home or self-care (01) ==
LOC: LC 08:19
PROVIDERS: ATTEND Obstetrics & Gynecology
DX: O47.1 False labor at or after 37 completed weeks of gestation (principal); Z3A.38 38 weeks gestation of pregnancy
CPT/HCPCS: 59025; 81005; 80307; J3490

== ENCOUNTER 2020-01-09 04:43 | Inpatient (IN) | payer MEDICAID ==
[2020-01-09] MEDS ORDERED: CLINDAMYCIN 900 MG/D5W RTU 900 MG/50 ML RTUPB IV PRN (05:23)
[2020-01-09] MEDS ORDERED: RINGERS SOLUTION,LACTATED 1,000 ML IV PRN ×2 (05:24→08:38)
[2020-01-09] MEDS ORDERED: RINGERS SOLUTION,LACTATED 1,000 ML IV ONE (05:30)
[2020-01-09 05:42] LABS: WHITE BLOOD COUNT 12.7 10^3/uL (4.0-10.5)
[2020-01-09 05:43] LABS: ABSOLUTE EOSINOPHILS # (AUTO) 0.5 10^3/uL (0.0-0.6); ABSOLUTE LYMPHOCYTES (AUTO) 2.3 10^3/uL (0.5-4.7); ABSOLUTE MONOCYTES (AUTO) 0.9 10^3/uL (0.1-1.4); ABSOLUTE NEUT (AUTO) 8.9 10^3/uL (1.7-8.2); BASOPHILS % (AUTO) 0.3 % (0-2); EOSINOPHILS % (AUTO) 3.7 % (0-6); HEMATOCRIT 35.4 % (36.0-47.0); HEMOGLOBIN 12.3 g/dL (12.0-15.5); MEAN CORPUSCULAR HEMOGLOBIN 30.5 pg (27.0-33.4); MEAN CORPUSCULAR HGB CONC 34.9 g/dL (32.0-36.0); MEAN CORPUSCULAR VOLUME 87 fl (80-97); MONOCYTES % (AUTO) 7.5 % (3-13); PLATELET COUNT 253 10^3/uL (150-450); RED BLOOD COUNT 4.05 10^6/uL (3.72-5.28); SEGMENTED NEUTROPHILS % (AUTO) 70.5 % (42-78); TOTAL CELLS COUNTED % (AUTO) 100 %
[2020-01-09] MEDS ORDERED: KETOROLAC TROMETHAMINE INJ/PF 30 MG/1 ML SDV ONE (07:35)
[2020-01-09] MEDS ORDERED: OXYTOCIN 10 UNIT/ML VIAL ONE (07:35)
[2020-01-09] MEDS ORDERED: GLYCOPYRROLATE INJ 0.4 MG/2 ML VIAL ONE (07:35)
[2020-01-09] MEDS ORDERED: PHENYLEPHRINE HCL INJ/PF 10 MG/1 ML SDV ONE (07:35)
[2020-01-09] MEDS ORDERED: FENTANYL CITRATE INJ/PF 100 MCG/2 ML AMPUL ONE (07:35)
[2020-01-09] MEDS ORDERED: EPHEDRINE SULFATE INJ 50 MG/1 ML AMPULE ONE (07:35)
[2020-01-09] MEDS ORDERED: MIDAZOLAM 2 MG/2 ML INJ ONE (07:36)
[2020-01-09] MEDS ORDERED: ACETAMINOPHEN 1,000 MG/100 ML RTUPB IV ONE (07:36)
[2020-01-09] MEDS ORDERED: ONDANSETRON HCL INJ/PF 4 MG/2 ML SDV ONE (07:36)
[2020-01-09] MEDS ORDERED: OXYTOCIN/0.9 % SODIUM CHLORIDE 30 UNIT/500 ML RTUINJ ONE ×2 (07:36→09:33)
[2020-01-09] MEDS ORDERED: FENTANYL CITRATE INJ/PF 100 MCG/2 ML AMPUL IV PRN ×3 (08:23)
[2020-01-09] MEDS ORDERED: MEPERIDINE HCL/PF INJ 25 MG/1 ML DISP.SYRIN IV PRN (08:23)
[2020-01-09] MEDS ORDERED: OXYCODONE-ACETAMINOPHEN 5-325 MG TABLET PO PRN ×2 (08:23)
[2020-01-09] MEDS ORDERED: DIPHENHYDRAMINE HCL 50 MG/ML VIAL IV PRN (08:23)
[2020-01-09] MEDS ORDERED: PROMETHAZINE HCL INJ 25 MG/1 ML VIAL IV PRN ×3 (08:23→08:38)
[2020-01-09] MEDS ORDERED: MORPHINE SULFATE 10 MG/ML INJ IV PRN (08:23)
[2020-01-09] MEDS ORDERED: MORPHINE SULFATE 10 MG/ML INJ IM PRN (08:38)
[2020-01-09] MEDS ORDERED: MEASLES,MUMPS&RUBELLA VACC/PF 0.5 ML VIAL SUBCUT PRN (08:38)
[2020-01-09] MEDS ORDERED: ACETAMINOPHEN 325 MG TABLET PO PRN (08:38)
[2020-01-09] MEDS ORDERED: OXYTOCIN/0.9 % SODIUM CHLORIDE 30 UNIT/500 ML RTUINJ IV PRN (08:38)
[2020-01-09] MEDS ORDERED: ACETAMINOPHEN 1,000 MG/100 ML RTUPB IV PRN (08:38)
[2020-01-09] MEDS ORDERED: DIPH/PERTUSS(ACELL)/TETANUS VAC/PF 0.5 ML SYR (>=10YO) IM PRN (08:38)
[2020-01-09] MEDS ORDERED: SIMETHICONE 80 MG TAB.CHEW PO PRN (08:38)
--- NOTE | 2020-01-09 08:48 | Operative Report ---
Operative Report DATE OF SURGERY: 01/09/20 PREOPERATIVE DIAGNOSIS: IUP at term prior section POSTOPERATIVE DIAGNOSIS: Same OPERATION: Repeat low transverse section delivery of viable female infant SURGEON: PARI WADE ANESTHESIA: Epidural TISSUE REMOVED OR ALTERED: Placenta COMPLICATIONS: None ESTIMATED BLOOD LOSS: Approximately 900 cc PROCEDURE: The patient was taken to the operating room where spinal anesthesia was obtained and found to be adequate. She was then prepped and draped in the no rmal sterile fashion and placed in the dorsal supine position with a leftward tilt. A Pfannenstiel skin incision was then made and carried through to the underlying layers of the fascia with the scalpel. The fascia was incised in the midline and the incision extended laterally with the Blair scissors. The superior aspect of the fascial incision was then grasped with Silvano clamps elevated and the underlying rectus muscles dissected off bluntly. Attention was then turned to the inferior aspect of the fascial incision which in a similar fashion was grasped, tented up with Chelsey clamps, and the rectus muscles dissected off bluntly. The rectus muscles were then in the midline and the peritoneum at the amount identified and entered bluntly. The peritoneal incision was then extended superiorly and inferiorly with good visualization of the bladder. [The bladder blade was inserted and the vesicouterine peritoneum identified grasped with Sudanese pickups and entered sharply with the Metzenbaum scissors. His incision was then extended laterally with the Metzenbaum scissors and a bladder flap created digitally. The bladder blade was then reinserted and the lower uterine segment incised in a transverse fashion with the scalpel. The uterine incision was then extended bluntly. The bladder blade was removed and the 's head was delivered from cephalic presentation atraumatically. The nose and mouth were suctioned and the cord doubly clamped and cut. And the was handed off to waiting pediatricians. The placenta was then delivered manully and the uterus exteriorized and cleared of all clots and debris. The uterine incision was then repaired with 1-0 Vicryl in a running locked fashion. A second layer of the same suture was used to obtain hemostasis via imbrication of the initial layer. The uterus was returned to the patient's abdomen. The gutters were cleared of all clots and debris. All operative sites were noted to be hemostatic. The fascia was reapproximated with 0 Vicryl in a running fashion from each lateral edge to the midline. The patient tolerated the procedure well. Sponge lap needle and instrument counts are correct -2. 2 g of Ancef were given prior to skin incision. The patient was taken to the recovery area awake and in stable condition.
[2020-01-09] MEDS ORDERED: HYDROMORPHONE HCL INJ/PF 2 MG/ML AMPULE IV PRN (09:03)
[2020-01-09] MEDS: OXYCODONE-ACETAMINOPHEN 5-325 MG TABLET PO PRN ×3 (10:35→20:15)
[2020-01-09] MEDS: PRENATAL VITAMIN W DHA CAPSULE PO SCH (20:10)
[2020-01-09] MEDS: DOCUSATE SODIUM 100 MG CAPSULE PO SCH (20:10)
[2020-01-10] MEDS: OXYCODONE-ACETAMINOPHEN 5-325 MG TABLET PO PRN ×4 (02:53→18:29)
[2020-01-10 06:45] LABS: HEMATOCRIT 32.8 % (36.0-47.0); HEMOGLOBIN 11.3 g/dL (12.0-15.5); MEAN CORPUSCULAR HEMOGLOBIN 30.6 pg (27.0-33.4); MEAN CORPUSCULAR HGB CONC 34.5 g/dL (32.0-36.0); MEAN CORPUSCULAR VOLUME 89 fl (80-97); PLATELET COUNT 242 10^3/uL (150-450); RED BLOOD COUNT 3.69 10^6/uL (3.72-5.28); RED CELL DISTRIBUTION WIDTH 13.4 % (11.5-14.0); WHITE BLOOD COUNT 14.3 10^3/uL (4.0-10.5)
[2020-01-10] MEDS: PRENATAL VITAMIN W DHA CAPSULE PO SCH (09:30)
[2020-01-10] MEDS: DOCUSATE SODIUM 100 MG CAPSULE PO SCH ×2 (09:30→17:38)
--- NOTE | 2020-01-10 10:54 | PDOC PROGRESS REPORT ---
Subjective-OB Progress Note for:: 01/10/20 - POD #1, doing well, UOP, voiding, no complaints, B+, Rubella immune Physical Exam (OB) Vital Signs: Temp Pulse Resp BP Pulse Ox 98.3 F 70 17 109/54 L 99 01/10/20 08:00 01/10/20 07:57 01/10/20 07:57 01/10/20 07:57 01/10/20 07:57 Intake & Output 01/09/20 01/10/20 01/11/20 06:59 06:59 06:59 Intake Total 2000 Output Total 770 Balance 1230 Weight 89.8 kg - General General Appearance: Appears well, Alert In distress: None - PIH/Pre-Eclampsia DTR's: 2 + Clonus: Negative Headache: Absent Epigastric Pain: No Visual Changes: No - Dressing Removed: Yes Incision: Dressing Closure Type: Surgical Glue - Maternal Morbidity 59. Maternal Morbidity (serious complications experinced by the mother associated with labor and delivery: None of the above - Lochia Lochia Amount: Scant < 10 ml Lochia Color: Rubra/Red - Abdomen Description: Soft Hernia Present: No Fundal Description: Firm, Midline Fundal Height: u/3 - u/4 - Respiratory Respiratory Status: No respiratory distress Breath sounds: Clear - Cardiovascular Rhythm: Regular Heart Sounds: Normal auscultation - Abdominal Inspection: Normal Distension: No distension Tenderness: Nontender Abdominal Notes: +bowel sounds - Genitourinary Genitourinary Note: voiding - Extremities Upper extremity: Normal inspection Lower extremities: Normal inspection - Neurological Cognition: Normal Orientation: AAOx4 - Psychological Associated symptoms: Normal affect, Normal mood - Skin Skin Temperature: Warm Skin Moisture: Dry Objective-Diagnostic Laboratory: 01/10/20 05:58 01/10/20 05:58 WBC 14.3 H RBC 3.69 L Hgb 11.3 L Hct 32.8 L MCV 89 MCH 30.6 MCHC 34.5 RDW 13.4 Plt Count 242 Assessment and Plan(PN) - Assessment and Plan (1) delivery delivered Is this a current diagnosis for this admission?: Yes (2) Non-reassuring electronic monitoring tracing Is this a current diagnosis for this admission?: Yes (3) Seizure disorder Is this a current diagnosis for this admission?: Yes Plan:: Routine PP / Post Op orders, ambulation encouraged - Time Spent with Patient Time with patient: Less than 15 minutes Medications reviewed and adjusted accordingly: Yes - Disposition Anticipated Discharge Disposition: Home, Self Care Anticipated Discharge Timeframe: within 48 hours
[2020-01-10] MEDS: IBUPROFEN 800 MG TABLET PO SCH ×2 (13:00→17:24)
[2020-01-11] MEDS: IBUPROFEN 800 MG TABLET PO SCH ×2 (00:07→05:35)
[2020-01-11] MEDS: OXYCODONE-ACETAMINOPHEN 5-325 MG TABLET PO PRN ×2 (05:37→10:17)
[2020-01-11] MEDS ORDERED: INFLUENZA QUAD (6MOS+) 2020-21 VAC 0.5 ML SYR IM ONE (08:00)
--- NOTE | 2020-01-11 10:06 | PDOC DISCHARGE SUMMARY ---
Impression - Admit/DC Date/PCP Admission Date/Primary Care Provider: 01/09/20 04:43 SUSAN MERRILL MD Discharge Date: 01/11/20 - POD #2, doing well, desires to go home today. B+, Rubella immune, - Discharge Diagnosis (1) delivery delivered Is this a current diagnosis for this admission?: Yes (2) Non-reassuring electronic monitoring tracing Is this a current diagnosis for this admission?: Yes (3) Seizure disorder Is this a current diagnosis for this admission?: Yes - Additional Information Resuscitation Status: Full Code Discharge Diet: As Tolerated Discharge Activity: Activity As Tolerated, No Driving, No Lifting Over 10 Pounds, Pelvic Rest Referrals: SUSAN MERRILL MD [Primary Care Provider] - Prescriptions: Ibuprofen [Motrin 800 mg Tablet] 800 mg PO Q6 #60 tablet Oxycodone HCl/Acetaminophen [Percocet 5-325 mg Tablet] 1 tab PO Q4HP PRN #30 tablet PRN Reason: Pain Scale Of 4 Home Medications: 95/Iron Fum/Folic/Dha [ + Dha Combo Pack] 1 each PO DAILY 01/06/20 Ibuprofen [Motrin 800 mg Tablet] 800 mg PO Q6 #60 tablet 01/11/20 Oxycodone HCl/Acetaminophen [Percocet 5-325 mg Tablet] 1 tab PO Q4HP PRN #30 tablet 01/11/20 HPI Reason(s) for Admission: Ceasarean Section-Repeat Procedures: Ultrasound Intrapartum Procedure(s): : Low Cervical, Transverse Hospital Course 59. Maternal Morbidity (serious complications experinced by the mother associated with labor and delivery: None of the above Results Laboratory Results: WBC 14.3 10^3/uL (4.0-10.5) H 01/10/20 05:58 RBC 3.69 10^6/uL (3.72-5.28) L 01/10/20 05:58 Hgb 11.3 g/dL (12.0-15.5) L 01/10/20 05:58 Hct 32.8 % (36.0-47.0) L 01/10/20 05:58 MCV 89 fl (80-97) 01/10/20 05:58 MCH 30.6 pg (27.0-33.4) 01/10/20 05:58 MCHC 34.5 g/dL (32.0-36.0) 01/10/20 05:58 RDW 13.4 % (11.5-14.0) 01/10/20 05:58 Plt Count 242 10^3/uL (150-450) 01/10/20 05:58 Lymph % (Auto) 18.0 % (13-45) 01/09/20 05:27 Atkinson % (Auto) 7.5 % (3-13) 01/09/20 05:27 Eos % (Auto) 3.7 % (0-6) 01/09/20 05:27 Baso % (Auto) 0.3 % (0-2) 01/09/20 05:27 Absolute Neuts (auto) 8.9 10^3/uL (1.7-8.2) H 01/09/20 05:27 Absolute Lymphs (auto) 2.3 10^3/uL (0.5-4.7) 01/09/20 05:27 Absolute Monos (auto) 0.9 10^3/uL (0.1-1.4) 01/09/20 05:27 Absolute Eos (auto) 0.5 10^3/uL (0.0-0.6) 01/09/20 05:27 Absolute Basos (auto) 0.0 10^3/uL (0.0-0.2) 01/09/20 05:27 Seg Neutrophils % 70.5 % (42-78) 01/09/20 05:27 COVID-19 Source See comment 01/06/20 08:15 COVID-19 ([facility]) Not Detected (Not Detect) 01/06/20 08:15 Blood Type B POSITIVE 01/09/20 05:27 Antibody Screen NEGATIVE 01/09/20 05:27 Plan Plan of Treatment: d/c home, f/up with [facility] in one week for incision check Time Spent: Less than 30 Minutes - check RPR since it doesnt look like it was drawn at this admission
[2020-01-11] MEDS: DOCUSATE SODIUM 100 MG CAPSULE PO SCH (10:16)
[2020-01-11] MEDS: PRENATAL VITAMIN W DHA CAPSULE PO SCH (10:16)
[2020-01-11 11:57] VITALS: BP 119/70
== END 2020-01-11 14:10 | disposition home or self-care (01) | DRG 788 ==
LOC: 2S 04:43
PROVIDERS: ADMIT Obstetrics & Gynecology Gynecology; ATTEND Obstetrics & Gynecology Gynecology
PROC: 10D00Z1 Extraction of Products of Conception, Low, Open Approach (ICD-10-PCS; principal; 2020-01-09)
DX: O34.219 Maternal care for unspecified type scar from previous cesarean delivery (principal); O34.211 Maternal care for low transverse scar from previous cesarean delivery; N85.8 Other specified noninflammatory disorders of uterus; O76 Abnormality in fetal heart rate and rhythm complicating labor and delivery; R56.9 Unspecified convulsions; Z3A.00 Weeks of gestation of pregnancy not specified; Z37.0 Single live birth; Z79.899 Other long term (current) drug therapy; Z87.891 Personal history of nicotine dependence; Z88.0 Allergy status to penicillin; Z88.6 Allergy status to analgesic agent
CPT/HCPCS: 1961; 36415; 59025; 85025; 85027; 86592; 86850; 86900; 86901; 87635; 94799; C9803; J0131; J1885; J2250; J2370; J2405; J2590; J3010; J3490; J7120